=== PATIENT | male | born 1965 | race Caucasian/White ===

== ENCOUNTER 2023-09-29 12:40 | Emergency (ER) | payer SELFPAY ==
[2023-09-29 12:44] VITALS: BP 146/74; PULSE 74; RESP 18; TEMP 98.3; BMI 28.7
[2023-09-29] MEDS: KETOROLAC TROMETHAMINE 30 MG/1 ML VIAL IM ONE (13:42)
== END 2023-09-29 13:48 | disposition home or self-care (01) ==
LOC: JERFT 12:40
PROC: 3E0233Z Introduction of Anti-inflammatory into Muscle, Percutaneous Approach (ICD-10-PCS; principal; 2023-09-29)
DX: S93.402A Sprain of unspecified ligament of left ankle, initial encounter (principal); M25.572 Pain in left ankle and joints of left foot; W10.1XXA Fall (on)(from) sidewalk curb, initial encounter; X50.0XXA Overexertion from strenuous movement or load, initial encounter; Y93.01 Activity, walking, marching and hiking
CPT/HCPCS: 73590-TC-LT-FY; 73610-TC-LT-FY; 73630-TC-LT; 99284-25